=== PATIENT | female | born 1965 | race Caucasian/White ===

== ENCOUNTER 2019-05-27 11:35 | Outpatient (CLI) | payer BC, SELFPAY ==
--- NOTE | ~2019-05-27 | US_ITS ---
US abdomen complete DATE: 05/27/2019 14:02 INDICATION: Abdominal pain TECHNIQUE: Real-time imaging of the abdomen. Doppler analysis. COMPARISON: 05/27/2019 CT abdomen FINDINGS: There is an approximately 1.5 x 2 cm hyperechoic lesion of the left hepatic lobe, consisten t with suggested cavernous hemangioma by current CT abdomen examination today. No other hepatic space -occupying mass lesion is evident. No evidence of gallstones, gallbladder wall thickening or abnormal pericholecystic fluid collection. Negative sonographic Eubanks's sign. The common bile duct measures 3 mm, normal. No pancreatic abnormality is evident. Normal splenic size. No renal space occupying mass lesion or hydronephrosis. Normal caliber of the abdominal aorta. No abnormality the inferior vena cava is evident. IMPRESSION: 1.5 x 2 cm left hepatic lobe hyperechoic lesion, likely due to cavernous hemangioma Reviewed, dictated and finalized at [facility]. Reviewed, dictated and finalized at [facility]. IMPRESSION: 1.5 x 2 cm left hepatic lobe hyperechoic lesion, likely due to cave rnous hemangioma
--- NOTE | ~2019-05-27 | CT_ITS ---
EXAMINATION: CT abdomen w con DATE: 05/27/2019 12:06 INDICATION: Abdominal pain TECHNIQUE: Computed tomography (CT) of the abdomen was performed with 100 cc Omnipaque 350 intravenou s contrast. Automated exposure control and iterative reconstruction technique were employed. Exam dos e: 393.46 mGy-cm total exam DLP. COMPARISON: None. FINDINGS: The lung bases are clear. No pericardial or pleural effusion. Borderline heart size. There is an approximately 2 cm hypoattenuating lesion of the left hepatic lobe with peripheral puddli ng of contrast material, most consistent with cavernous hemangioma. No other hepatic space occupying mass lesion is detected. No pancreatic mass lesion or calcification. No bile or pancreatic duct dilatation. Normal splenic s ize. There is an approximately 6 x 11 mm left adrenal mass, likely a small left adrenal adenoma. Normal caliber of the abdominal aorta. No intraperitoneal or retroperitoneal mass lesion or lymphade nopathy or ascites. Normal appendix. There is mild colonic diverticulosis; no evidence of diverticulitis. No bowel obst ruction or free air. Probable bone island of T10 vertebral body. No suspicious osteolytic or osteosclerotic lesions are n oted. IMPRESSION: Hepatic cavernous hemangioma Small left adrenal probable adenoma Mild colonic diverticulosis Reviewed, dictated and finalized at [facility]. Reviewed, dictated and finalized at [facility].
[2019-05-27 12:27] LABS: Basophils Percent Auto 0.4 % (0.2-1.2); Eosinophils Absolute Auto 0.1 K/mm3 (0-0.3); Hematocrit 42.7 % (37.0-47.0); Hemoglobin 14.4 g/dL (12.0-15.0); Immature Granulocyte Absolute 0.01 K/mm3 (0.00-0.031); Immature Granulocyte Percent A 0.2 % (0-0.5); Lymphocytes Absolute Auto 1.66 K/mm3 (0.9-3.2); Lymphocytes Percent Auto 34.7 % (18.3-44.2); Mean Corpuscular HGB Conc 33.7 g/dl (32-36); Mean Corpuscular Hemoglobin 30.3 pg (26-34); Mean Corpuscular Volume 89.9 fl (80-100); Mean Platelet Volume 10.3 fl (7.4-10.4); Monocytes Absolute Auto 0.4 K/mm3 (0.1-0.6); Monocytes Percent Auto 7.7 % (2.6-8.5); Neutrophils Absolute Auto 2.7 K/mm3 (1.3-6.7); Platelet Count Result 216 k/mm3 (150-375); Red Blood Count 4.75 M/mm3 (4.2-5.4); White Blood Count 4.8 K/mm3 (4.5-10.0)
[2019-05-27 12:38] LABS: Alanine Aminotransferase 14 U/L (4-35); Albumin Level 4.3 g/dL (3.5-5.1); Alkaline Phosphatase 69 U/L (38-126); Amylase 91 U/L (30-110); Aspartate Amino Transferase 28 U/L (14-36); Bilirubin,Total 1.3 mg/dL (0.2-1.3); Blood Urea Nitrogen 14 mg/dL (7-17); Calcium 9.4 mg/dL (8.4-10.2); Carbon Dioxide 29 mmol/L (22-30); Chloride 104 mmol/L (98-107); Estimated Glomerular Filt Rate > 60; Glucose 99 mg/dL (65-105); Lipase 82 U/L (23-300); Potassium 4.4 mmol/L (3.4-5.0); Sodium 137 mmol/L (137-145)
== END 2019-05-27 11:36 | disposition home or self-care (01) ==
PROVIDERS: PCP Family Medicine; Visit Provider Nurse Practitioner Family
DX: R10.9 Unspecified abdominal pain (principal); K76.9 Liver disease, unspecified; D18.09 Hemangioma of other sites; D35.02 Benign neoplasm of left adrenal gland; K57.90 Diverticulosis of intestine, part unspecified, without perforation or abscess without bleeding
CPT/HCPCS: 36415; 74160; 76700; 80053; 82150; 83690; 85025; Q9967

== ENCOUNTER 2019-07-26 07:16 | Outpatient (CLI) | payer BC, SELFPAY ==
--- NOTE | ~2019-07-26 | NM_ITS ---
EXAMINATION: NM hepatobiliary w pharm DATE: 07/26/2019 09:30 INDICATION: Right upper quadrant abdominal pain. COMPARISON: Abdomen ultrasound 05/27/2019 TECHNIQUE: 5 mCi Tc-99m mebrofenin (Choletec) was administered intravenously. Scintigraphic images o f the abdomen were obtained for one hour. Then, 2 mcg sincalide (Kinevac) IV was administered, and im aging was continued for 30 minutes. FINDINGS: There is normal clearance of radiotracer from the blood pool. There is homogeneous tracer u ptake by the liver. Activity progresses to the bowel and gallbladder. Gallbladder ejection fraction (GBEF) was 91%. Note that most patients with gallbladder dysfunction have GBEF < 35%, which overlaps with the broad normal range of 10-90%. IMPRESSION: 1. Normal hepatobiliary scintigraphy. Reviewed, dictated and finalized at [facility].
== END 2019-07-26 07:17 | disposition home or self-care (01) ==
PROVIDERS: PCP Family Medicine; Visit Provider Nurse Practitioner Family
DX: R10.11 Right upper quadrant pain (principal)
CPT/HCPCS: 78227; A9537; J2805

== ENCOUNTER 2021-11-18 00:43 | Day surgery (SDC) | payer BC, SELFPAY ==
[2021-11-05 10:32] VITALS: BMI 35.1
--- NOTE | 2021-11-17 14:58 | PM.HPGS ---
History of Present Illness History of Present Illness Consent: Risks, benefits, and alternatives have been discussed and questions answered. Patient agrees to proceed with procedure. Chief complaint: neoplasm screening, hx polyps Narrative: Virgie Phelps is a 56 year old female Referred for colon cancer screening. She has a history of polyps. None were seen on her last examination 5 years ago. Review of Systems Review of Systems: All systems reviewed & are unremarkable except as noted in HPI and below PMFSH Past Medical History Medical History BMI 36.0-36.9,adult Family History Family History Father Hypertension Family history of heart disease in male family member before age 55 Grandparent Carcinoma of colon Mother Family history of diabetes mellitus in first degree relative Family history of malignant neoplasm of cervix Obesity Diabetes mellitus Sibling No problems noted. Social History Social History Smoking status: Never smoker Second hand tobacco smoke exposure: No Alcohol intake: current Substance use: never Substance use type: does not use Living arrangements: with family Additional occupation/education comments: therapy technician Gender identity (if verbalized by the patient): Female Spiritual care concerns: No Meds Home Medications and Allergies Home Medications Medication Instructions Recorded Confirmed Type alprazolam 0.5 mg tablet 0.5 mg PO TID PRN anxiety #30 tabs 09/09/21 11/05/21 Rx ergocalciferol (vitamin D2) 1,250 50,000 unit PO WEEKLY #8 caps 09/20/21 11/05/21 Rx mcg (50,000 unit) capsule Allergies Allergy/AdvReac Type Severity Reaction Status Date / Time No Known Allergies Allergy Verified 11/05/21 10:43 Exam Const: General: alert Orientation/consciousness: patient oriented x3 Resp: Auscultation: clear to auscultation bilaterally Cardio: Rhythm: regular rhythm GI: GI Palp: Yes Soft to palpation and No Tenderness to palpation present (GI) Neuro: General: patient oriented x3 Assessment and Plan Assessment and plan (1) Colon cancer screening: Code(s): Z12.11 - Encounter for screening for malignant neoplasm of colon Status: Acute Assessment and Plan: Colonoscopy with possible biopsy or polypectomy or cautery or injection of substances.
[2021-11-18 12:40] VITALS: BMI 34.7
--- NOTE | 2021-11-18 12:44 | P.PNAN_ITS ---
Anes - Initial Pre Proc Eval Procedure: Operation Date: 11/18/21 14:00 Proposed Procedures p Screening Colonoscopy - Daniel Galarza MD Date/Time: 11/18/21 12:44 Surgeon: Daniel Galarza MD Pre Op Diagnosis: neoplasm screening, hx polyps Patient Data Age: 56 Gender: F Height: 1.6 m Weight: 89 kg Allergies Allergy/AdvReac Type Severity Reaction Status Date / Time No Known Allergies Allergy Verified 11/05/21 10:43 Home Medications Medication Instructions Recorded Confirmed Type alprazolam 0.5 mg tablet 0.5 mg PO TID PRN anxiety #30 tabs 09/09/21 11/05/21 Rx ergocalciferol (vitamin D2) 1,250 50,000 unit PO WEEKLY #8 caps 09/20/21 11/05/21 Rx mcg (50,000 unit) capsule Patient hx anesthesia problems: none Family hx anesthesia problems: none Results Review: All pre-operative results and documents have been reviewed as part of the pre- operative evaluation. [facility] Past Medical History Medical History BMI 36.0-36.9,adult Family History Family History Father Hypertension Family history of heart disease in male family member before age 55 Grandparent Carcinoma of colon Mother Family history of diabetes mellitus in first degree relative Family history of malignant neoplasm of cervix Obesity Diabetes mellitus Sibling No problems noted. 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 Informed Consent: The patient's anesthetic plan and its attendant risks and benefits were discussed with the patient/family/POA. Questions were solicited and answers provided to the satisfaction of the patient/family/POA.
[2021-11-18] MEDS: LACTATED RINGERS 1,000 ML 150 ML IV CONT (12:50)
[2021-11-18] MEDS: SIMETHICONE ORAL SUSPENSION 20 MG/0.3 ML 30 ML BOTTLE 0.6 ML IRRIGATION (13:46)
[2021-11-18 13:56] VITALS: BP 105/67; PULSE 77; RESP 18; O2SAT 98
[2021-11-18 14:06] VITALS: BP 100/67; PULSE 71; RESP 16; O2SAT 97
[2021-11-18 14:16] VITALS: BP 105/73; PULSE 68; RESP 18; O2SAT 98
== END 2021-11-18 14:28 | disposition home or self-care (01) ==
PROVIDERS: PCP Family Medicine; Visit Provider Internal Medicine Gastroenterology
PROC: 0DJD8ZZ Inspection of Lower Intestinal Tract, Via Natural or Artificial Opening Endoscopic (ICD-10-PCS; CPT 45378; principal; 2021-11-18 14:00)
DX: Z12.11 Encounter for screening for malignant neoplasm of colon (principal); K57.30 Diverticulosis of large intestine without perforation or abscess without bleeding; E66.9 Obesity, unspecified; Z68.34 Body mass index [BMI] 34.0-34.9, adult; Z86.010 Personal history of colon polyps
CPT/HCPCS: 45378; J2704; J7120

== ENCOUNTER 2022-10-04 08:04 | Outpatient (CLI) | payer BC, SELFPAY ==
[2022-10-04 09:15] LABS: Vitamin D 25 Hydroxy 45.3 ng/mL
== END 2022-10-04 08:05 | disposition home or self-care (01) ==
PROVIDERS: PCP Family Medicine; Visit Provider Nurse Practitioner Family
DX: E55.9 Vitamin D deficiency, unspecified (principal)
CPT/HCPCS: 36415; 82306

== ENCOUNTER 2024-01-22 09:14 | Outpatient (CLI) | payer BC, SELFPAY ==
--- NOTE | 2024-01-22 09:40 | ECG_ITS ---
Test Date: 2024-01-22 09:45:52 Measurements Intervals Dike Rate: 56 P: -40 SD: 149 QRS: 3 QRSD: 101 T: 10 QT: 437 QTc: 422 Interpretive Statements SINUS BRADYCARDIA INCOMPLETE RIGHT BUNDLE BRANCH BLOCK MINIMAL Q WAVES- HIGH LATERAL LEADS BORDERLINE T WAVE ABNORMALITY- ANT/INF LEADS BASELINE ARTIFACT- II, III, AVF BORDERLINE ECG No previous ECG available for comparison Electronically Signed On 01-22-2024 10:44:00 [employer] by Harvey Robles D.O.
== END 2024-01-22 09:15 | disposition home or self-care (01) ==
LOC: ANHLAB 09:16 → ANHCARD 09:18
PROVIDERS: PCP Family Medicine; Visit Provider Nurse Practitioner Family
DX: R94.31 Abnormal electrocardiogram [ECG] [EKG] (principal); R00.1 Bradycardia, unspecified; Z82.49 Family history of ischemic heart disease and other diseases of the circulatory system
CPT/HCPCS: 93005

== ENCOUNTER 2024-01-23 07:20 | Outpatient (CLI) | payer BC, SELFPAY ==
[2024-01-23 08:07] LABS: Hematocrit 41.2 % (37.0-47.0); Hemoglobin 13.7 g/dL (12.0-15.0); Mean Corpuscular HGB Conc 33.3 g/dl (32-36); Mean Corpuscular Hemoglobin 30.6 pg (26-34); Mean Platelet Volume 9.7 fl (7.4-10.4); Platelet Count Result 220 k/mm3 (150-375); Red Blood Count 4.48 M/mm3 (4.2-5.4); White Blood Count 4.8 K/mm3 (4.5-10.0)
[2024-01-23 08:27] LABS: Alanine Aminotransferase 21 U/L (6-35); Alkaline Phosphatase 75 U/L (38-126); Anion Gap 5 mmol/L (4-12); Aspartate Amino Transferase 29 U/L (14-36); Bilirubin,Total 0.9 mg/dL (0.2-1.3); Blood Urea Nitrogen 18 mg/dL (7-17); Calcium 8.8 mg/dL (8.4-10.2); Carbon Dioxide 29 mmol/L (22-30); Chloride 105 mmol/L (98-107); Cholesterol 198 mg/dL (0-200); Estimated Glomerular Filt Rate 57; Glucose 102 mg/dL (65-110); HDL Direct 52 mg/dL; Potassium 3.9 mmol/L (3.4-5.0); Sodium 139 mmol/L (137-145); Triglycerides 90 mg/dL (<150)
[2024-01-23 08:37] LABS: LDL Cholesterol Direct 107 mg/dL
[2024-01-23 09:40] LABS: Vitamin D 25 Hydroxy 58.8 ng/mL
== END 2024-01-23 07:21 | disposition home or self-care (01) ==
PROVIDERS: PCP Family Medicine; Visit Provider Nurse Practitioner Family
DX: N28.9 Disorder of kidney and ureter, unspecified (principal); E55.9 Vitamin D deficiency, unspecified; F41.9 Anxiety disorder, unspecified; Z82.49 Family history of ischemic heart disease and other diseases of the circulatory system; Z13.220 Encounter for screening for lipoid disorders; Z13.29 Encounter for screening for other suspected endocrine disorder
CPT/HCPCS: 36415; 80053; 80061; 82306; 84443; 85027

== ENCOUNTER 2024-08-20 08:26 | Outpatient (CLI) | payer BC, SELFPAY ==
--- NOTE | ~2024-08-20 | XR_ITS ---
HISTORY: W19.XXXA - Unspecified fall, initial encounter RT LAT PAIN COMPARISON: None TECHNIQUE: 3 views of the bilateral ribs were performed along with a PA and lateral views of the ches t FINDINGS: No acute displaced fracture is appreciated. Bone mineralization is age-appropriate. Cardiomediastinal silhouette is unremarkable. The lungs are clear IMPRESSION: No acute displaced rib fracture is identified bilaterally, as detailed above. Reviewed, dictated and finalized at [facility]. IMPRESSION: No acute displaced rib fracture is identified bilaterally, as cy carrillo above.
== END 2024-08-20 08:27 | disposition home or self-care (01) ==
PROVIDERS: PCP Family Medicine; Visit Provider Nurse Practitioner Family
DX: S29.9XXA Unspecified injury of thorax, initial encounter (principal); X58.XXXA Exposure to other specified factors, initial encounter
CPT/HCPCS: 71046; 71110